=== PATIENT | female | born 1990 | race Caucasian/White ===

== ENCOUNTER → 2020-05-06 09:53 | Outpatient (CLI) | payer OTHER, MEDICAID, SELFPAY ==
[2020-05-06 11:33] LABS: Add Manual Diff / Slide Review NO; Basophils Absolute Auto 200 /uL (0-100); Basophils Percent Auto 2.3 % (0-2); Eosinophils Absolute Auto 200 /uL (0-450); Eosinophils Percent Auto 2.3 % (2-4); Hematocrit 36.3 % (36-46); Hemoglobin 12.2 g/dL (12.0-16.0); Lymphocytes Absolute Auto 2100 /uL (1100-4500); Lymphocytes Percent Auto 28.6 % (25-40); Mean Corpuscular HGB Conc 33.8 % (30-36); Mean Corpuscular Hemoglobin 29.2 PG (26-34); Mean Corpuscular Volume 86.5 fL (80-100); Monocytes Absolute Auto 1000 /uL (0-900); Monocytes Percent Auto 12.9 % (3-14); Neutrophils Absolute Auto 4000 /uL (1500-7000); Neutrophils Percent Auto 53.9 % (50-75); Platelet Count 270 X10^3/uL (150-400); Red Blood Cell Count 4.19 X10^6/uL (4.0-5.2); Red Cell Distribution Width 13.4 % (11.6-14.8); White Blood Cell Count 7.4 X10^3/uL (4.5-11.0)
[2020-05-06 12:00] LABS: C-Reactive Protein Quant < 0.5 mg/dL (<1.0)
[2020-05-06 12:42] LABS: Rheumatoid Factor < 8.6 IU/mL (<12.0)
[2020-05-09 21:40] LABS: CCP Antibodies IgG/IgA 12 units (0-19)
== END ==
PROVIDERS: PCP Family Medicine; Referring Provider Family Medicine; Visit Provider Family Medicine
DX: M79.641 Pain in right hand (principal); M79.642 Pain in left hand
CPT/HCPCS: 36415; 85025; 86140; 86200; 86430

== ENCOUNTER → 2022-07-05 11:20 | Outpatient (CLI) | payer OTHER, MEDICAID, SELFPAY ==
[2022-07-05 13:05] LABS: Add Manual Diff / Slide Review NO; Basophils Absolute Auto 100 /uL (0-100); Basophils Percent Auto 0.8 % (0-2); Eosinophils Absolute Auto 200 /uL (0-450); Eosinophils Percent Auto 2.4 % (2-4); Hematocrit 34.8 % (36-46); Hemoglobin 11.9 g/dL (12.0-16.0); Lymphocytes Absolute Auto 1900 /uL (1100-4500); Lymphocytes Percent Auto 18.9 % (25-40); Mean Corpuscular HGB Conc 34.2 % (30-36); Mean Corpuscular Hemoglobin 29.9 PG (26-34); Mean Corpuscular Volume 87.4 fL (80-100); Monocytes Absolute Auto 1000 /uL (0-900); Monocytes Percent Auto 9.4 % (3-14); Neutrophils Absolute Auto 6900 /uL (1500-7000); Neutrophils Percent Auto 68.5 % (50-75); Platelet Count 274 X10^3/uL (150-400); Red Blood Cell Count 3.99 X10^6/uL (4.0-5.2); Red Cell Distribution Width 14.4 % (11.6-14.8); White Blood Cell Count 10.1 X10^3/uL (4.5-11.0)
[2022-07-05 13:41] LABS: Hepatitis B Surface Antigen NEGATIVE s/c (NEGATIVE); Rubella Antibody IgG 11.7 IU/mL (>15)
[2022-07-05 13:52] LABS: HIV 1 & 2 Ab/Ag 4th Gen Combo NEGATIVE (NEGATIVE); Hep C Virus Ab w/Reflex Quant NEGATIVE s/c (NEGATIVE)
[2022-07-05 14:17] LABS: Urine N gonorrhoeae NOT DETECTED
[2022-07-05 14:18] LABS: Urine Chlamydia NOT DETECTED
[2022-07-06 05:49] LABS: RPR Screen Non Reactive (Non Reactive)
[2022-07-06 08:36] LABS: Varicella IgG Antibody 2293 index (Immune >165)
== END ==
PROVIDERS: PCP Nurse Practitioner Family; Referring Provider Obstetrics & Gynecology; Visit Provider Obstetrics & Gynecology
DX: Z34.81 Encounter for supervision of other normal pregnancy, first trimester (principal); Z3A.11 11 weeks gestation of pregnancy
CPT/HCPCS: 36415; 80055; 86787; 86803; 86850; 86900; 86901; 87086; 87389; 87491; 87591

== ENCOUNTER → 2022-08-16 11:04 | Outpatient (CLI) | payer OTHER, MEDICAID, SELFPAY ==
[2022-08-18 19:43] LABS: AFP Value 33.6 ng/mL (.); Gest Age on Col Date 21.1 weeks (.); Insulin Dep Diabetes No (.); OSBR Risk 1IN 10000 (.); Results Report (.); Test Results *Screen Negative* (.)
== END ==
PROVIDERS: PCP Nurse Practitioner Family; Referring Provider Obstetrics & Gynecology; Visit Provider Obstetrics & Gynecology
DX: Z34.82 Encounter for supervision of other normal pregnancy, second trimester (principal); Z3A.17 17 weeks gestation of pregnancy
CPT/HCPCS: 36415; 82105

== ENCOUNTER → 2022-09-12 12:03 | Outpatient (CLI) | payer OTHER, MEDICAID, SELFPAY ==
--- NOTE | 2022-09-12 12:04 | DI.US.S_ITS ---
PROCEDURE: US OB >= 14 WEEKS FETUS INDICATIONS: 20 WEEK ANATOMY SCAN OUTSIDE/PRIOR DATING DATA: Last menstrual period (LMP): 04/14/2022. LMP-based estimated date of delivery (DIONI): 01/14/2023. First dating scan (date and location): 09/12/2022. Estimated date of delivery (DIONI) from first dating scan: 01/20/2023. Working sonographic DIONI of 01/19/2023. TECHNIQUE: Real-time scanning was performed of the fetus, with image documentation and biometric measurements. Endovaginal scanning: Not performed COMPARISON: None. FINDINGS: General: A single living intrauterine gestation is present. Presentation: Vertex. Placenta: Placental position is posterior , without previa. Amniotic fluid index: 12.5 cm, normal range is 5-24 cm. Single deepest vertical pocket is 3.8 cm. heart rate: 136 beats per minute. Maternal cervical canal: 3.6 cm long. Normal lower limit is 2.5 cm. biometrics: Biparietal diameter: 4.9 centimeter, 21 weeks 0 days Head circumference: 19.1 centimeter, 21 weeks 3 days Abdominal circumference: 16.6 centimeters, 21 weeks 5 days Femur length: 3.6 centimeters, 21 weeks 4 days Clinically estimated gestational age: 21 weeks 4 days Composite gestational age from present scan: 21 weeks 3 days Estimated weight and percentile: 434 grams, 44th percentile Anatomic survey: Neuro: Ventricles are non-dilated at less than 10 mm. Cisterna magna is normal at 3-11 mm. Cerebellum is normal in size and morphology. Nuchal skin fold: Normal at less than 6 mm between 14-21 weeks gestational age. Face: Nose and lips, facial profile are normal. Spine: No evidence for spina bifida. Heart: 4-chambered heart is present, with normal ventricular outflow tracts. Diaphragm: Diaphragm is intact. Stomach: Left-sided stomach is present. Kidneys: No hydronephrosis. Normal is less than 5 mm in 2nd trimester, less than 7 mm in 3rd trimester. Cord: 3-vessel cord has orthotopic insertion. Bladder: Normal in size. Extremities: All 4 extremities identified. IMPRESSION: Single living intrauterine at 21 weeks 4 days, DIONI 01/19/2023. Normal anatomy survey. Estimated weight of 434 grams, 44th percentile. We strive to produce accurate, complete, and clear reports of imaging services. To assist us in improving patient care, this report was composed using standard report templates and voice recognition software. Therefore, it may contain abnormal punctuation, insertions and/or omissions. Occasional wrong-word or sound-alike substitutions may occur. Though we review the report and make efforts to correct it, we do recommend that the report be read carefully in proper context to recognize any text inaccuracies. Dictated by: Merlin Rowe M.D. on 09/12/2022 at 16:17 Approved by: Merlin Rowe M.D. on 09/12/2022 at 16:20
== END ==
PROVIDERS: PCP Nurse Practitioner Family; Referring Provider Obstetrics & Gynecology; Visit Provider Obstetrics & Gynecology
DX: Z34.82 Encounter for supervision of other normal pregnancy, second trimester (principal); Z3A.21 21 weeks gestation of pregnancy
CPT/HCPCS: 76811

== ENCOUNTER → 2022-10-12 13:21 | Outpatient (CLI) | payer OTHER, MEDICAID, SELFPAY ==
[2022-10-12 14:21] LABS: UR Morphine/Opiate cutoff 300 Negative (Negative); Ur Creatinine Normal (Normal); Ur Specific Gravity Normal (Normal); Urine Amphetamines Negative (Negative); Urine Barbiturates Negative (Negative); Urine Benzodiazepines Negative (Negative); Urine Cocaine Negative (Negative); Urine MDMA Negative (Negative); Urine Methadone Negative (Negative); Urine Methamphetamines Negative (Negative); Urine Oxycodone Negative (Negative); Urine Phencyclidine Negative (Negative); Urine Tetrahydrocannabinol Negative (Negative); Urine Tricyclic Antidepressant Negative (Negative); Urine pH Normal (Normal)
== END ==
PROVIDERS: Visit Provider Obstetrics & Gynecology
DX: F11.129 Opioid abuse with intoxication, unspecified (principal); Z34.02 Encounter for supervision of normal first pregnancy, second trimester; Z3A.25 25 weeks gestation of pregnancy; Z34.82 Encounter for supervision of other normal pregnancy, second trimester
CPT/HCPCS: 80305; 87086

== ENCOUNTER → 2022-11-09 12:40 | Outpatient (CLI) | payer OTHER, MEDICAID, SELFPAY ==
[2022-11-09 15:07] LABS: Hematocrit 29.3 % (36-46); Hemoglobin 9.9 g/dL (12.0-16.0)
[2022-11-09 15:31] LABS: GTT (PREG) 1 Hour PP 50gm Dose 134 mg/dL (76-139)
[2022-11-09 16:45] LABS: Ur Creatinine Normal (Normal); Ur Specific Gravity Normal (Normal); Urine pH Normal (Normal)
[2022-11-09 16:46] LABS: UR Morphine/Opiate cutoff 300 Negative (Negative); Urine Amphetamines Negative (Negative); Urine Barbiturates Negative (Negative); Urine Benzodiazepines Negative (Negative); Urine Cocaine Negative (Negative); Urine MDMA Negative (Negative); Urine Methadone Negative (Negative); Urine Methamphetamines Negative (Negative); Urine Oxycodone Negative (Negative); Urine Phencyclidine Negative (Negative); Urine Tetrahydrocannabinol Positive (Negative); Urine Tricyclic Antidepressant Negative (Negative)
== END ==
PROVIDERS: Specialist; Referring Provider Obstetrics & Gynecology; Visit Provider Obstetrics & Gynecology
DX: Z34.82 Encounter for supervision of other normal pregnancy, second trimester (principal); Z3A.25 25 weeks gestation of pregnancy; Z34.90 Encounter for supervision of normal pregnancy, unspecified, unspecified trimester; F15.10 Other stimulant abuse, uncomplicated; F11.129 Opioid abuse with intoxication, unspecified
CPT/HCPCS: 36415; 80305; 82950; 85014; 85018

== ENCOUNTER → 2022-11-30 16:55 | Outpatient (CLI) | payer OTHER, MEDICAID, SELFPAY | PROVIDERS: Visit Provider Obstetrics & Gynecology | DX: R82.998 Other abnormal findings in urine (principal) | CPT/HCPCS: 87086 ==

== ENCOUNTER → 2022-12-21 15:10 | Outpatient (CLI) | payer OTHER, MEDICAID, SELFPAY ==
[2022-12-21 19:09] LABS: UR Morphine/Opiate cutoff 300 Negative (Negative); Ur Creatinine Normal (Normal); Ur Specific Gravity Normal (Normal); Urine Amphetamines Negative (Negative); Urine Barbiturates Negative (Negative); Urine Benzodiazepines Negative (Negative); Urine Cocaine Negative (Negative); Urine MDMA Negative (Negative); Urine Methadone Negative (Negative); Urine Methamphetamines Negative (Negative); Urine Oxycodone Negative (Negative); Urine Phencyclidine Negative (Negative); Urine Tetrahydrocannabinol Negative (Negative); Urine Tricyclic Antidepressant Negative (Negative); Urine pH Normal (Normal)
[2022-12-23 11:02] LABS: Strep Grp B PCR POS for Grp B Strep
== END ==
PROVIDERS: Visit Provider Obstetrics & Gynecology
DX: Z34.83 Encounter for supervision of other normal pregnancy, third trimester (principal); Z3A.35 35 weeks gestation of pregnancy; F11.129 Opioid abuse with intoxication, unspecified; F15.10 Other stimulant abuse, uncomplicated; R82.998 Other abnormal findings in urine
CPT/HCPCS: 80305; 87086; 87653

== ENCOUNTER → 2022-12-27 15:28 | Outpatient (CLI) | payer OTHER, MEDICAID, SELFPAY ==
[2022-12-27 19:23] LABS: Ur Creatinine Normal (Normal); Ur Specific Gravity Normal (Normal)
[2022-12-27 19:24] LABS: UR Morphine/Opiate cutoff 300 Negative (Negative); Urine Amphetamines Negative (Negative); Urine Barbiturates Negative (Negative); Urine Benzodiazepines Negative (Negative); Urine Cocaine Negative (Negative); Urine MDMA Negative (Negative); Urine Methadone Negative (Negative); Urine Methamphetamines Negative (Negative); Urine Oxycodone Negative (Negative); Urine Phencyclidine Negative (Negative); Urine Tetrahydrocannabinol Negative (Negative); Urine Tricyclic Antidepressant Negative (Negative); Urine pH Normal (Normal)
== END ==
PROVIDERS: Visit Provider Obstetrics & Gynecology
DX: F11.129 Opioid abuse with intoxication, unspecified (principal); F15.10 Other stimulant abuse, uncomplicated; R82.998 Other abnormal findings in urine
CPT/HCPCS: 80305; 87086

== ENCOUNTER → 2023-01-09 16:40 | Outpatient (CLI) | payer OTHER, MEDICAID, SELFPAY | PROVIDERS: Visit Provider Obstetrics & Gynecology | DX: R82.998 Other abnormal findings in urine (principal); R31.9 Hematuria, unspecified | CPT/HCPCS: 87086 ==

== ENCOUNTER 2023-01-17 05:17 | Inpatient (IN) | payer OTHER, MEDICAID, SELFPAY ==
[2023-01-17 05:20] VITALS: BP 107/64
[2023-01-17 06:17] LABS: Add Manual Diff / Slide Review NO; Basophils Absolute Auto 100 /uL (0-100); Basophils Percent Auto 1.1 % (0-2); Eosinophils Absolute Auto 200 /uL (0-450); Eosinophils Percent Auto 2.6 % (2-4); Hematocrit 28.8 % (36-46); Hemoglobin 9.4 g/dL (12.0-16.0); Lymphocytes Absolute Auto 1800 /uL (1100-4500); Lymphocytes Percent Auto 25.6 % (25-40); Mean Corpuscular HGB Conc 32.7 % (30-36); Mean Corpuscular Hemoglobin 23.9 PG (26-34); Mean Corpuscular Volume 73.2 fL (80-100); Monocytes Absolute Auto 1000 /uL (0-900); Monocytes Percent Auto 14.6 % (3-14); Neutrophils Absolute Auto 3900 /uL (1500-7000); Neutrophils Percent Auto 56.1 % (50-75); Platelet Count 274 X10^3/uL (150-400); Red Blood Cell Count 3.93 X10^6/uL (4.0-5.2); Red Cell Distribution Width 17.4 % (11.6-14.8)
[2023-01-17] MEDS: LACTATED RINGERS 1,000 ML 999 ML IV ×2 (06:50→08:31)
--- NOTE | 2023-01-17 07:27 | PM.OBHP.1 ---
OB HPI Date/Time Date of admission: 01/17/23 Date Patient Seen: 01/17/23 Time Patient Seen: 07:27 History of Present Condition Chief complaint: IUP, 39+5 wks, prior CS x 2, GBS POS : 3 Para: 2 Estimated Date of Delivery: 01/19/23 Estimated Gestational Age (weeks): 39+5 Narrative: José Miguel Fontana is a 32 year old admitted now at 39+ 5 weeks gestational age for repeat section. course has been largely uneventful but she is anemic. She tested positive for opioids and methamphetamine in the ER at [facility] late in the second trimester but she denies use of those substances and all subsequent UDS testing has been negative for those substances. She has solid early dating and appropriate milestones throughout. GBS is positive. Indications Operative indications ( section): previous uterine surgery History of Present care: good care Ultrasounds: normal 1st trimester US and normal mid trimester US Obstetrical complications: none Medical complications: none Preadmission Labs Blood type: O (+) positive -: Antibody screen: negative, GBS status: positive, HBsAG: negative, HIV: negative and RPR/VDLR: negative -: Chlamydia screen: not detected and Gonorrhea screen: not detected -: Rubella: not immune and Varicella: immune HCT: 28.8 HCAB: negative PAP: Normal Quad screen: Normal (AFP testing is negative) Cell-free DNA: Low risk female 1 hr GTT: 134 Prior (ies) History: sections x2 Evaluation Evaluation Baseline heart rate: 120 Variability: Moderate (11-25) monitor accelerations: Present Monitor Decelerations: Absent Contraction Frequency (minutes): 4 Uterine Contraction Intensity: Mild Status: Category l PFSH Medical History (Updated 01/11/23 @ 10:10 by Gordon Ignacio MD) Tachycardia Upper extremity somatic dysfunction Bilateral hand pain History of section (01/10/16) pain Surgical History (Updated 01/09/23 @ 17:20 by Gordon Ignacio MD) H/O tooth extraction Previous section complicating Family History (Updated 05/31/22 @ 10:20 by Hillary Anderson RN) Mother Arthritis Adopted Father Hypertension Grandfather Stroke Grandmother Glaucoma Social History marital status: number of children: 2 household members: spouse and children lives independently: Yes caregiver/support person: Yes housing: house pets and animals: Yes (1 dog, 2 cats) education level: high school (10th grade) occupational status: employed current occupational exposures/hazards: Yes (possible chemicals and lubricants) special warren needs: No travel history: over 6 months ago seatbelt use: always helmet use: Yes water heater temp set < 120 deg: Yes working smoke detector in home: Yes fire extinguisher in home: Yes carbon monox detector in home: Yes firearms in home: No do you feel safe at home: Yes Smoking Status: Never smoker Tobacco: How many years used: 17 second hand exposure: No alcohol intake: former (2-4/week when not ) substance use type: does not use during the past year weight has: remained stable well-balanced diet: daily or most days daily servings fruits/ve or more times/day caffeine: Yes (aware of 200mg limit, working to decrease intake) Type(s) of exercise: walking Meds Home Medications and Allergies Home Medications Medication Instructions Recorded Confirmed Type prenat.vits,nabeel,odg-zpfn-gvhth 1 tab PO DAILY 05/31/22 01/09/23 History venlafaxine 37.5 mg 37.5 mg PO DAILY 05/31/22 01/09/23 History capsule,extended release 24 hr Allergies Allergy/AdvReac Type Severity Reaction Status Date / Time No Known Drug Allergies Allergy Unknown Unverified 01/09/23 16:56 Review of Systems Review of Systems Narrative: Problem-specific ROS positives included in HPI OB Exam Vital signs Blood Pressure: 107/64 Pulse Rate: 95 Temperature: 97.9 F HENMT Head: normal to inspection, normocephalic and atraumatic Eyes General: appearance normal, both eyes and all related structures Resp Effort & Inspection: normal respiratory effort and able to speak in complete sentences Auscultation: clear to auscultation bilaterally Cardio Rate: regular rate Rhythm: regular rhythm Heart Sounds: S1 normal, S2 normal and no murmurs Extremities Lower extremity: Yes normal to inspection GI Inspection: normal to inspection Palpation: Yes soft and Yes no hepatosplenomegaly Uterus Location (Fundal Height): 38 Presentation: vertex Estimated Weight (lbs): 8 Objective Labs 01/17/23 06:10 Labs: Laboratory Results - last 24 hr 01/17/23 06:10 WBC 7.0 RBC 3.93 L Hgb 9.4 L Hct 28.8 L MCV 73.2 L MCH 23.9 L MCHC 32.7 RDW 17.4 H Plt Count 274 Neut % (Auto) 56.1 Lymph % (Auto) 25.6 [place] % (Auto) 14.6 H Eos % (Auto) 2.6 Baso % (Auto) 1.1 Neut # (Auto) 3900 Lymph # (Auto) 1800 [place] # (Auto) 1000 H Eos # (Auto) 200 Baso # (Auto) 100 Blood Type O Positive Antibody Screen Negative Assessment and Plan Assessment and Plan Assessment and Plan narrative: ASSESSMENT 1. Intrauterine , 39+ 5 weeks gestational age 2. Prior sections x2 3. GBS positive status PLAN 1. Admit for repeat section 2. See admission orders Time Spent with Patient Total time spent with greater than 50% in coordination of care (as documented) at patient's floor/unit and/or counseling patient:: 15-24 minutes
[2023-01-17 07:36] VITALS: BP 107/64; PULSE 95; TEMP 36.6
--- NOTE | 2023-01-17 07:36 | PM.PREOP ---
Pre-operative Note COVID-19 COVID-19 status: Not tested Interval Note History & Physical reviewed/Exam performed by Physician: Yes Changes to H&P: No
[2023-01-17] MEDS: CITRIC ACID/SODIUM CITRATE 15 ML SOLUTION 30 ML PO (07:44)
[2023-01-17] MEDS: CEFAZOLIN 2 GM/100 ML PREMIX 100 ML IV (08:01)
--- NOTE | 2023-01-17 08:27 | SUR.OPER ---
Supine on Padded OR bed, head on pillow, safety belt at thigh, arms secured on padded arm boards at <90 degrees abduction. Bump under right buttock. Legs uncrossed with pillow under knees, gel pad to heels, tape over blanket to lower legs.
--- NOTE | 2023-01-17 08:45 | SUR.OPER ---
Viable baby girl born at 0839. Placenta delivered at 0842. Placenta and cord blood given to OB RN. APGARs: 8/9.
--- NOTE | 2023-01-17 08:50 | SUR.OPER ---
Obstetrical vaccuum delivery kit used x1 attempt.
[2023-01-17 09:35] VITALS: BP 110/66; PULSE 53; RESP 18; TEMP 36.5; O2SAT 100
[2023-01-17 09:40] VITALS: BP 99/61; PULSE 51; RESP 16; O2SAT 99
[2023-01-17 09:45] VITALS: BP 113/55; PULSE 51; RESP 14; O2SAT 100
[2023-01-17 09:49] VITALS: BP 113/78; PULSE 50; RESP 14; TEMP 36.6; O2SAT 100
--- NOTE | 2023-01-17 09:52 | PM.OBCS.1 ---
Operative Date/Time/Diagnoses Date of procedure: 01/17/23 Time of procedure: 08:00 Pre-op diagnosis: Intrauterine gestation, lindsay, 39+5 weeks EGA Previous section x 2 Post-op diagnosis: same Procedure & Clinicians Procedure: Repeat section (low transverse cervical) Same procedure as scheduled: Yes Indications: José Miguel Fontana is a 32 year old admitted now at 39+ 5 weeks gestational age for repeat section. course has been largely uneventful but she is anemic. She tested positive for opioids and methamphetamine in the ER at [facility] late in the second trimester but she denies use of those substances and all subsequent UDS testing has been negative for those substances. She has solid early dating and appropriate milestones throughout. GBS is positive. Surgeon: Gordon Ignacio Director Of Business Applications: Tara Valdez Reason for Director Of Business Applications: Director Of Business Applications required for the safe, effective, and timely completion of this surgery. Anesthesia Type: Spinal Operative Notes Findings: Viable female infant BW 3440 gms, Apgars 8/9, delivered from the vertex presentation. Normal gravid anatomy. Closure Type: primary Specimen(s): cord blood Intraoperative meds administered: Ketorolac and Pitocin Applied: Catheter Estimated Blood Loss (mL): 500 Blood products transfused: none Procedure in detail: With her informed written consent, the patient was taken to the operating room and placed in the supine position for a repeat section procedure, for the indication(s) above. The abdomen was prepped and draped in the usual manner for section and a pre-surgical timeout was taken per [facility] OR protocol. Once effective anesthesia was confirmed, a 15 cm transverse Pfannenstiel incision was made in the skin and taken down through the subcutaneous tissues to the deep fascia. The deep fascia was incised transversely, the rectus abdominal eyes bluntly and sharply, and the peritoneal cavity entered without difficulty. The lower uterine segment was visualized and the position/presentation palpated. A transverse incision at or above the vesicouterine reflection was made with Metzenbaum scissors and transverse hysterotomy performed near the midline. Amniotomy revealed [] fluid. The incision was extended bilaterally with digital traction and the infant was delivered via vacuum assist from the vertex presentation. The infant was vigorous and cord clamping delayed for 60 seconds. The placenta was delivered intact using gentle cord traction and fundal massage.The uterine cavity was then cleared of any clot/debris first with a sloppy wet lap tape followed by a dry lap tape. Ring forceps were then applied to the angles and the midline of the incised YUE. A primary closure of the uterus was then accomplished with #1 CCGS in a running interlocking stitch followed by a 2nd layer of #1 CCGS in a running interlocking imbricating stitch. No additional sutures was/were required to achieve complete hemostasis. A defect in the bladder muscularis was closed with 2-0 CCGS using a running interlocking sticth Once pelvic hemostasis was assured, the bladder flap and anterior peritoneum were closed with a running 2-0 Vicryl suture and the fascia closed with #1 Vicryl in a running stitch initiated at both angles and tying separately near the midline. The subcutaneous tissues were reapproximated with 2-0 plain catgut suture using inverted interrupted stitches. The skin edges were then brought together with 4-0 Monocryl in a subcuticular closure and the incision was reinforced with 1 Steri-Strips. An appropriate compression dressing was applied and the patient transferred to PACU for recovery and subsequent transfer to the Center for recuperation. Complications: none Baby 1: Infant Gender: Female Presentation: vertex Position: Left Occiput Anterior Placental Delivery Description: Spontaneous and Expressed Cord Vessel Description: 3 Vessels score (1 min): 8 score (5 min): 9 weight: 7 lb 9.342 oz Post-operative Condition: stable Disposition: PACU Aftercare: routine postop
[2023-01-17] MEDS: ACETAMINOPHEN 325 MG TABLET 650 MG PO ×3 (10:25→22:35)
[2023-01-17] MEDS: OXYCODONE IR 5 MG TABLET PO ×3 (13:52→22:36)
[2023-01-17] MEDS: KETOROLAC 30 MG/ML VIAL IV ×2 (15:00→21:17)
[2023-01-17] MEDS: LANOLIN OINT 7 GM 1 APPLIC TOP (22:36)
[2023-01-18] MEDS: OXYCODONE IR 5 MG TABLET PO ×5 (02:53→21:28)
[2023-01-18] MEDS: KETOROLAC 30 MG/ML VIAL IV (02:53)
[2023-01-18] MEDS: ACETAMINOPHEN 325 MG TABLET 650 MG PO ×3 (06:12→17:36)
[2023-01-18 08:11] VITALS: TEMP 37.2
[2023-01-18] MEDS: DOCUSATE 100 MG CAPSULE PO ×2 (08:12→21:28)
[2023-01-18] MEDS: IBUPROFEN 600 MG TABLET PO ×3 (09:33→21:27)
[2023-01-18 10:17] LABS: Add Manual Diff / Slide Review NO; Basophils Absolute Auto 100 /uL (0-100); Basophils Percent Auto 0.8 % (0-2); Eosinophils Absolute Auto 200 /uL (0-450); Eosinophils Percent Auto 1.6 % (2-4); Hematocrit 25.2 % (36-46); Hemoglobin 8.1 g/dL (12.0-16.0); Lymphocytes Absolute Auto 1500 /uL (1100-4500); Lymphocytes Percent Auto 14.1 % (25-40); Mean Corpuscular HGB Conc 32.3 % (30-36); Mean Corpuscular Hemoglobin 23.7 PG (26-34); Mean Corpuscular Volume 73.3 fL (80-100); Monocytes Absolute Auto 1000 /uL (0-900); Monocytes Percent Auto 9.2 % (3-14); Neutrophils Absolute Auto 8200 /uL (1500-7000); Neutrophils Percent Auto 74.3 % (50-75); Platelet Count 234 X10^3/uL (150-400); Red Blood Cell Count 3.44 X10^6/uL (4.0-5.2); Red Cell Distribution Width 16.9 % (11.6-14.8)
--- NOTE | 2023-01-18 11:18 | P.PNOB_ITS ---
Subjective - OB Subjective Patient comments: pain well controlled, incisional pain and tolerating diet baby status: doing well Narrative: 32yo [id number] POD#1 s/p RLTCS at 39+5wks. Reports pain is ok, she ambulated yesterday, but hasn't ambulated today. Tiburcio was d/c'd this morning, however pt hasn't voided yet. Is tolerating regular diet. Date Patient Seen: 01/18/23 Time Patient Seen: 11:19 Exam Vital Signs (past 8 hours): - 01/18/23 08:11 Temperature 99 F Oxygen Delivery Method Room Air Narrative Exam Narrative: vitals reviewed in OBIX, within normal parameters Const General: cooperative and No in distress Resp Effort & Inspection: normal respiratory effort and able to speak in complete sentences GI Palpation: soft and tender (appropriately) Skin General: no rashes or lesions noted Other: low transverse skin incision clean/dry/intact with steri-strips in place Extrem General: normal to inspection and no pedal edema Psych Mood: congruent mood Affect: normal affect Objective Labs 01/18/23 10:02 Labs: Laboratory Results - last 24 hr 01/18/23 10:02 WBC 11.0 D RBC 3.44 L Hgb 8.1 L Hct 25.2 L MCV 73.3 L MCH 23.7 L MCHC 32.3 RDW 16.9 H Plt Count 234 Neut % (Auto) 74.3 Lymph % (Auto) 14.1 L [place] % (Auto) 9.2 Eos % (Auto) 1.6 L Baso % (Auto) 0.8 Neut # (Auto) 8200 H Lymph # (Auto) 1500 [place] # (Auto) 1000 H Eos # (Auto) 200 Baso # (Auto) 100 Assessment & Plan Assessment and Plan (1) Acute blood loss anemia: Status: Acute (2) delivery, delivered, current hospitalization: Status: Acute Plan day: 1 plan OB: routine postop care Comments: 32yo [id number] POD#1 s/p RLTCS. Post-op H/H with appropriate drop. -encouraged ambulation today, and monitor for symptoms of anemia -f/u due to void this morning -continue oral iron supplementation -if pt does well, anticipate d/c home tomorrow Time Spent With Patient Time: Total time spent is greater than 50% in coordination of care (as documented) at patient's floor/unit and/or counseling patient: Time with patient: 15-24 minutes
[2023-01-18] MEDS: FERROUS SULFATE 325 MG TABLET PO (15:09)
[2023-01-19] MEDS: ACETAMINOPHEN 325 MG TABLET 650 MG PO ×2 (02:38→09:07)
[2023-01-19] MEDS: OXYCODONE IR 5 MG TABLET PO ×2 (02:41→09:07)
[2023-01-19] MEDS: IBUPROFEN 600 MG TABLET PO (05:50)
[2023-01-19] MEDS: DOCUSATE 100 MG CAPSULE PO (09:07)
[2023-01-19] MEDS: FERROUS SULFATE 325 MG TABLET PO (09:07)
--- NOTE | 2023-01-19 09:42 | P.DS_ITS ---
Discharge Providers Provider Date of admission: 01/17/23 05:17 Discharge Date: 01/19/23 Primary care physician: Doctor Ramirez MD Consults: 01/17/23 09:58 Consult to Bagman/Woman Routine Comment: Discharge provider: Tara Valdez DO Summary Hospital Course Date Patient Seen: 01/19/23 Time Patient Seen: 09:42 Diagnoses: Term gestation at 39+5wks History of x2 History of maternal drug use in Hospital Course: 32yo [id number] admitted at 39+5wks for scheduled repeat . Her delivery was uncomplicated, and productive of a viable female weighing 3440g with APGARs 8/9. Her course was unremarkable. On post-op day #2, she was ambulating, tolerating regular diet, voiding spontaneously with minimal lochia. Her pain was well controlled with oral medications, thus she was discharged to home on post-op day #2. Peripartum Data Delivery Method: Section Procedures: External monitoring Spinal anesthesia Repeat low transverse section complications: none Discharge Diagnosis (1) Acute blood loss anemia: Status: Acute (2) delivery, delivered, current hospitalization: Status: Acute Status at Discharge Cognitive/behavioral status at discharge: oriented Functional status at discharge: independent ambulation Overall status at discharge: patient is back to baseline Time Spent with Patient Time attestation: Total time spent providing and/or coordinating discharge services: Time spent: Greater than 30 minutes Objective Labs 01/18/23 10:02 Labs: Laboratory Results - last 24 hr 01/18/23 10:02 WBC 11.0 D RBC 3.44 L Hgb 8.1 L Hct 25.2 L MCV 73.3 L MCH 23.7 L MCHC 32.3 RDW 16.9 H Plt Count 234 Neut % (Auto) 74.3 Lymph % (Auto) 14.1 L [place] % (Auto) 9.2 Eos % (Auto) 1.6 L Baso % (Auto) 0.8 Neut # (Auto) 8200 H Lymph # (Auto) 1500 [place] # (Auto) 1000 H Eos # (Auto) 200 Baso # (Auto) 100 Exam Vital Signs (past 8 hours): Oxygen Delivery Method Room Air Narrative Exam Narrative: vitals reviewed in OBIX, within normal parameters Const General: cooperative, healthy appearing, comfortable and No acute distress Resp Effort & Inspection: normal respiratory effort GI Inspection: normal to inspection Other: fundus firm and nontender at U-2 Skin General: no rashes or lesions noted Other: incision clean/dry/intact with steri-strips Neuro General: patient alert and patient awake Extrem General: normal to inspection, no pedal edema and no calf tenderness Psych Mood: congruent mood Affect: normal affect Discharge Plan Discharge Plan Patient Disposition: Home Provider Discharge Comment: Continue taking ibuprofen 600mg every 6hrs and tylenol 650mg every 6hrs for pain. Use oxycodone 5mg every 4hrs as needed for breakthrough pain. Continue taking a daily oral iron supplement for anemia. Avoid lifting more than 20lbs for at least 6 weeks. Nothing in the vagina for 6wks. Discharge orders & Medications Prescriptions: New oxycodone 5 mg Tablet 5 mg PO Q4H PRN (Reason: Pain, Moderate (4-6)) Qty: 10 0RF Continued prenat.vits,nabeel,yom-[id number] Tablet 1 tab PO DAILY venlafaxine 37.5 mg capsule,extended release 24hr 37.5 mg PO DAILY Follow up/Referrals: Gordon Ignacio MD [Physician] - (Please follow up with Dr. Ignacio in one week for an incision check and then again at six weeks. Thanks!) Diet/Activity/Treatments Diet: Diet as Tolerated Skin/Wound/Dressing Care Report to your healthcare provider any signs of infection, such as:: chills, fever, increased pain, unusual drainage and unusual redness Visit Report/Discharge Packet Instructions: DI for , DI for Prescription Opioid Use Stand Alone Forms: Discharge: Care, Patient Portal/API, Stroke Signs & Symptoms Discharge Data Primary Care Provider: Miscellaneous,Doctor
[2023-01-19 10:50] VITALS: BP 113/60; PULSE 92; RESP 16; TEMP 36.6
== END 2023-01-19 10:45 | disposition home or self-care (01) | DRG 540 ==
PROVIDERS: Admitting Provider Obstetrics & Gynecology; Referring Provider Obstetrics & Gynecology; Visit Provider Obstetrics & Gynecology
PROC: 10D00Z1 Extraction of Products of Conception, Low, Open Approach (ICD-10-PCS; CPT 59514; principal; 2023-01-17 07:45)
DX: O34.211 Maternal care for low transverse scar from previous cesarean delivery (principal); O90.81 Anemia of the puerperium; D62 Acute posthemorrhagic anemia; Z3A.39 39 weeks gestation of pregnancy; Z37.0 Single live birth; O99.824 Streptococcus B carrier state complicating childbirth
CPT/HCPCS: 36415; 59050; 59514; 85025; 86850; 86900; 86901; J0330; J0690; J1100; J1885; J2274; J2405; J2704